=== PATIENT | female | born 1990 | race Caucasian/White ===

== ENCOUNTER → 2019-08-29 12:39 | Outpatient (CLI) | payer OTHER, SELFPAY ==
[2019-08-30 12:58] LABS: Strep Grp B PCR POS for Grp B Strep
== END ==
PROVIDERS: Visit Provider Specialist
DX: Z34.83 Encounter for supervision of other normal pregnancy, third trimester (principal)
CPT/HCPCS: 87653

== ENCOUNTER 2019-09-10 06:03 | Inpatient (IN) | payer OTHER, SELFPAY ==
--- NOTE | 2019-09-10 | PATH_ITS ---
[facility] Accession Number: [id number] . 01 Material submitted: . fallopian tube - BILATERAL FALLOPIAN TUBE SEGMENTS . 02 Diagnosis: Bilateral Fallopian Tube Segments, Bilateral Tubal Ligation: Two segments of fallopian tube. No evidence of neoplasm. [facility] 09/12/2019 1209 Local . 02 Electronically signed: . Joce Andrea MD, PhD, Pathologist NPI- [id number] . 01 Gross description: . Received one formalin-filled container, labeled with the patient's name and labeled bilateral fallopian tube segments. The specimen consists of two pink-shepherd to shepherd-bui, rough, cylindrical-shaped portions of tissue. The first measures 1.3 cm in length by 0.4 cm in diameter. The specimen is sectioned into three pieces and entirely submitted in cassette A1. The second piece measures 1.2 cm in length by 0.5 cm in diameter. The specimen is sectioned into three pieces and entirely submitted in cassette A2. ([id number]) /[facility] 09/11/2019 0228 Local . 02 Microscopic: . Complete cross-sections of fallopian tube are seen in each of the submitted tubal structures. . 02 Pathologist provided ICD-10: Z98.891, Z30.2 . 02 CPT . 501716 Performed at: 01 [facility] [address] [facility], [place], [place] [id number] MD Yosef May MD Phone: [phone] Performed at: 02 [facility] [address] [place], [place] [id number] MD Carmita King MD Phone: [phone]
--- NOTE | 2019-09-10 07:26 | P.HPOB_ITS ---
OB HPI Date/Time Date of admission: 09/10/19 Date Patient Seen: 09/10/19 Time Patient Seen: 07:27 History of Present Condition Chief complaint: [id number] : 3 Para: 2 Estimated Date of Delivery: 09/17/19 Estimated Gestational Age (weeks): 39 Narrative: Rafaela Sky is a 29 year old female admitted for repeat section with bilateral tubal ligation Indications Operative indications ( section): previous uterine surgery (2 prior C- sections) History of Present care: good care, initiated at week # (11) and number of visits (8) Dating criteria: LMP confirmed by 1st trimester US Ultrasounds: normal mid trimester US Obstetrical complications: gestational diabetes (Diet controlled) Medical complications: none Preadmission Labs Blood type: AB (+) positive -: Antibody screen: negative, GBS status: positive, HBsAG: negative, HIV: negative and RPR/VDLR: negative -: Chlamydia screen: not detected and Gonorrhea screen: not detected -: Rubella: immune HCAB: negative 1 hr GTT: 170 Prior (ies) History: 02/28/2011 39 week gestation for intolerance of labor male 11/24/2017 39 week gestation repeat male Evaluation Evaluation Baseline heart rate: 125 Variability: Moderate (11-25) monitor accelerations: Present monitor decelerations: Absent Category of Tracing: I PFSH Medical History (Updated 07/16/19 @ 09:49 by Megan Ward RN) Abnormal Pap smear of cervix (Acute ~2010) Anxiety (Acute) Depression (Acute) Hyperemesis gravidarum (Acute) Post depression (Acute) Ulcer (Acute ~2013) Surgical History (Updated 08/03/19 @ 13:02 by Tanesha Corona MD) History of primary section (Acute ~03/18/11) S/P repeat low transverse (Acute ~11/24/17) Family History (Updated 07/16/19 @ 09:43 by Megan Ward RN) Mother Hypertension Hyperlipidemia Hyperthyroidism Father No problems noted. Grandfather No problems noted. Grandmother No problems noted. Grandfather Spinal cord cancer Metastatic bone cancer Throat cancer Grandmother Depression Social History marital status: number of children: 2 household members: children (X 2) pets and animals: Yes (X 1) education level: high school occupational status: unemployed current occupational exposures/hazards: No special gianni needs: No Smoking Status: Never smoker Meds Home Medications and Allergies Home Medications Medication Instructions Recorded Confirmed Type ondansetron 8 mg disintegrating 8 mg PO Q8H PRN 07/16/19 09/05/19 History tablet prenat.vits,nakul,ceg-glax-grfzv 1 tab PO DAILY 07/16/19 09/05/19 History omeprazole 40 mg capsule,delayed 40 mg PO DAILY #30 cap 08/15/19 09/05/19 Rx release Allergies Allergy/AdvReac Type Severity Reaction Status Date / Time pepto bismal Allergy Severe Hives and Uncoded 09/05/19 11:23 Trouble Breathing tree nuts AdvReac Mild Swelling, Uncoded 09/05/19 11:23 hives Review of Systems Review of Systems Narrative: Patient denies any headaches, scotomata, epigastric pain. Good movement. No regular contractions. No rupture membranes. ROS: Yes All systems reviewed with the patient and are negative except as otherwise documented Exam Vital Signs (past 8 hours): Blood pressure 123/62, pulse of 87, temperature 97.5? Narrative Exam Narrative: HEENT exam within normal limits. Lungs are clear to auscultation percussion. Heart is regular rate and rhythm no S3-S4 or murmurs. Abdomen is gravid. Fetus is vertex. Extremities without edema and nontender Patient did received the Tdap in the 3rd trimester Assessment and Plan Assessment and Plan Assessment and Plan narrative: 39 week gestation for repeat section and desire for tubal ligation for permanent sterilization
--- NOTE | 2019-09-10 07:26 | PM.PREOP ---
Pre-operative Note Interval Note History & Physical reviewed/Exam performed by Physician: Yes Changes to H&P: No
[2019-09-10] MEDS: CEFAZOLIN 2 GM/100 ML FROZ.PIGGY IV (08:13)
--- NOTE | 2019-09-10 08:34 | SUR.OPER ---
Supine on Padded OR bed, head on pillow, safety belt at thigh, arms secured on padded arm boards at <90 degrees abduction. Bump under right buttock. Legs uncrossed with pillow under knees, gel pad to heels, tape over blanket to lower legs.
--- NOTE | 2019-09-10 08:39 | SUR.OPER ---
FHT's 140. TOB live girl @0815. Cord blood x2 andn placenta to OB with L&D Rn
[2019-09-10 09:20] VITALS: BP 108/57; PULSE 94; RESP 22; TEMP 37.4; O2SAT 94
[2019-09-10 09:25] VITALS: BP 108/46; PULSE 84; RESP 96; TEMP 37.4; O2SAT 96
[2019-09-10 09:30] VITALS: BP 103/58; PULSE 98; RESP 13; TEMP 37.1; O2SAT 95
[2019-09-10] MEDS: ONDANSETRON 4 MG/2 ML INJ IV (09:35)
[2019-09-10 09:40] VITALS: BP 100/72; PULSE 80; RESP 20; TEMP 37.1; O2SAT 97
--- NOTE | 2019-09-10 09:40 | P.OP_ITS ---
Operative Date/Time/Diagnoses Date of procedure: 09/10/19 Time of procedure: 09:40 Pre-op diagnosis: 39 week gestation with 2 prior sections and undesired fertility Post-op diagnosis: same Procedure & Clinicians Procedure: Repeat low-transverse section with bilateral tubal ligation Same procedure as scheduled: Yes Indications: 2 prior C-sections at 39 weeks with undesired fertility Surgeon: Tanesha Corona [employer] Recruiter: Latoya Rockwell Click Yes if Unassisted: No Anesthesia Type: Spinal Operative Notes Findings: Normal tubes, ovaries, and uterus. Viable female infant weighing 7 lb 1 oz 3205 g with Apgars of 8 and 9 Closure Type: primary Specimen(s): other (Bilateral tubal segments) Applied: catheter (Arias) Estimated Blood Loss (mL): 400 Blood products transfused: none Procedure in detail: The patient was brought to the operating room where she underwent an epidural for anesthesia. She was placed in a supine position with a left lateral tilt. A Arias catheter was placed. Pulsatile stockings were placed and functional throughout the case. 2 g of Ancef were given IV prior to the incision. Warming was in place. The patient was prepped and draped in usual sterile fashion. A low transverse incision was made with a scalpel and the incision was carried down to the fascial layer which was incised transversely with scissors. The midline attachments are superiorly and inferiorly. Some bleeding was controlled Bovie. The rectus muscles were in the midline and the peritoneal incision was made with no damage to internal structures. The perit oneum was incised and superiorly and inferiorly. Bladder blade was placed and a bladder flap was developed and the bladder held away from the lower uterine segment. An incision was made in the uterus with the scalpel and the incision was extended with stretching. The head was elevated out of the abdomen and with fundal pressure the baby was delivered. The infant was bulb suctioned for clear fluid and handed off to the warmer. Cord blood was collected. The placenta delivered spontaneously with traction. The uterus was cleaned with clean laps. The uterine incision was closed in 2 layers of 0 chromic suture the first a running locking layer the second an imbricating layer. The bladder peritoneum was repaired with 2-0 Polysorb suture. The gutters were cleaned of any remaining fluids and ovaries and tubes were observed to be normal. Michael was used to hold a segment of the left fallopian tube which was tied off x2 with 0 plain suture. The intervening section was removed and sent to pathology. The same procedure was performed on the right side. Adequate hemostasis was noted. The perineum was closed with 2-0 Polysorb suture. The fascia layer was closed with 0 Polysorb suture with 2 stitches. The incision was irrigated and adequate hemostasis noted. The incision was closed with interrupted 3-0 Polysorb sutures and then a subcuticular stitch of 4-0 Polysorb suture. Steri-Strips were placed. The uterus was massaged to remove any clots. The patient went to recovery room in good condition. Counts of instruments and sponges were correct. Complications: none Post-operative Condition: stable Disposition: other ( Center) Plan for aftercare: Routine post section
[2019-09-10 09:45] VITALS: BP 117/66; PULSE 90; RESP 15; O2SAT 94
[2019-09-10 10:21] LABS: Add Manual Diff / Slide Review NO; Basophils Absolute Auto 100 /uL (0-100); Basophils Percent Auto 0.7 % (0-2); Eosinophils Absolute Auto 100 /uL (0-450); Eosinophils Percent Auto 1.5 % (2-4); Hematocrit 33.2 % (36-46); Hemoglobin 11.2 g/dL (12.0-16.0); Lymphocytes Absolute Auto 1900 /uL (1100-4500); Lymphocytes Percent Auto 21.2 % (25-40); Mean Corpuscular HGB Conc 33.9 % (30-36); Mean Corpuscular Hemoglobin 29.1 PG (26-34); Mean Corpuscular Volume 85.9 fL (80-100); Monocytes Absolute Auto 700 /uL (0-900); Monocytes Percent Auto 7.7 % (3-14); Neutrophils Absolute Auto 6200 /uL (1500-7000); Neutrophils Percent Auto 68.9 % (50-75); Platelet Count 163 X10^3/uL (150-400); Red Blood Cell Count 3.87 X10^6/uL (4.0-5.2); Red Cell Distribution Width 14.1 % (11.6-14.8)
[2019-09-10 10:56] VITALS: BP 123/62
[2019-09-10] MEDS: LACTATED RINGERS 1,000 ML 100 ML IV ×2 (11:43→20:15)
[2019-09-10] MEDS: METOCLOPRAMIDE 10 MG/2 ML INJ IV (11:50)
[2019-09-10] MEDS: NALOXONE 0.4 MG/ML VIAL IV ×2 (13:45→14:00)
[2019-09-10] MEDS: KETOROLAC 30 MG/ML VIAL IV ×2 (16:24→21:23)
[2019-09-10] MEDS: LACTATED RINGERS 1,000 ML 1000 ML IV (16:25)
[2019-09-10] MEDS: SCOPOLAMINE 1 PATCH TOP (16:25)
[2019-09-11] MEDS: LACTATED RINGERS 1,000 ML 100 ML IV ×2 (00:31→08:28)
[2019-09-11 03:13] VITALS: BP 104/61; PULSE 77; RESP 16; TEMP 37.2
[2019-09-11] MEDS: KETOROLAC 30 MG/ML VIAL IV (03:15)
[2019-09-11 04:13] VITALS: BP 104/61; PULSE 77; RESP 16; TEMP 36.6
[2019-09-11 07:32] LABS: Hematocrit 27.2 % (36-46); Hemoglobin 9.3 g/dL (12.0-16.0)
[2019-09-11] MEDS: DOCUSATE 250 MG CAPSULE PO (08:41)
[2019-09-11] MEDS: LANOLIN OINT 7 GM 1 APPLIC TOP (09:10)
--- NOTE | 2019-09-11 09:36 | PM.OBPN.1 ---
Subjective - OB Subjective Patient comments: pain well controlled [place] baby status: doing well and nursing well [place] feeding status: exclusively breast feeding Date Patient Seen: 09/11/19 Time Patient Seen: 08:36 Interval history: Patient is post operative day 1. Repeat with tubal ligation. Patient had significant nausea which has since resolved. She had some borderline urinary output which is now improved. She is up without issues. Breast-feeding is going well. Exam Vital Signs (past 8 hours): Blood pressure 108/62, pulse 68, temperature 36.3? Oxygen Delivery Method Nasal Cannula Narrative Exam Narrative: Abdomen is soft, nontender. Uterus is firm, at U, nontender. Dressing is clean, dry, intact. Mild lochia. Extremities without edema and nontender. Objective Labs Result Diagrams: 09/11/19 06:50 Labs: Laboratory Results - last 24 hr 09/10/19 09/10/19 09/11/19 10:01 10:01 06:50 WBC 9.0 RBC 3.87 L Hgb 11.2 L 9.3 L Hct 33.2 L 27.2 L MCV 85.9 MCH 29.1 MCHC 33.9 RDW 14.1 Plt Count 163 Neut % (Auto) 68.9 Lymph % (Auto) 21.2 L [place] % (Auto) 7.7 Eos % (Auto) 1.5 L Baso % (Auto) 0.7 Neut # (Auto) 6200 Lymph # (Auto) 1900 [place] # (Auto) 700 Eos # (Auto) 100 Baso # (Auto) 100 Blood Type AB Positive Antibody Screen Negative Assessment & Plan Assessment and Plan (1) Delivery by section: Status: Acute Current Visit: Yes (2) Sterilization: Status: Acute Current Visit: Yes (3) Acute blood loss anemia: Status: Acute Current Visit: Yes Plan day: 1 plan OB: routine postop care Time Spent With Patient Time: Total time spent is greater than 50% in coordination of care (as documented) at patient's floor/unit and/or counseling patient: Time with patient: less than 15 minutes
[2019-09-11] MEDS: OXYCODONE/ACETAMINOPHEN 5/325 TABLET 2 TAB PO (12:14)
[2019-09-11 18:11] VITALS: TEMP 37.2
[2019-09-11] MEDS: IBUPROFEN 600 MG TABLET PO (18:11)
[2019-09-12] MEDS: OXYCODONE/ACETAMINOPHEN 5/325 TABLET 2 TAB PO ×2 (01:05→10:29)
[2019-09-12] MEDS: IBUPROFEN 600 MG TABLET PO (01:06)
--- NOTE | 2019-09-12 08:14 | P.DS_ITS ---
Discharge Providers Provider Date of admission: 09/10/19 06:03 Discharge Date: 09/12/19 Consults: 09/10/19 10:12 Consult to Showroom Sales Consultant Routine Comment: Discharge provider: Tanesha Corona MD Summary Hospital Course Date Patient Seen: 09/12/19 Time Patient Seen: 08:14 Procedures: Repeat low-transverse section with bilateral tubal ligation Hospital Course: Patient was admitted for repeat low-transverse section and tubal ligation. She had significant nausea initially post operatively. She now it is tolerating regular diet, passing gas, urinating and ambulating well and her pain is well controlled. She is breast-feeding without difficulty. No headaches, scotomata, epigastric pain. Peripartum Data Delivery Method: Section (Repeat low-transverse section with bilateral tubal ligation) Procedures: Repeat low-transverse section with bilateral tubal ligation complications: none 1: Gender: Female Disposition of : home Discharge Diagnosis (1) Delivery by section: Status: Acute (2) Sterilization: Status: Acute (3) Acute blood loss anemia: Status: Acute Status at Discharge Cognitive/behavioral status at discharge: oriented Functional status at discharge: independent ambulation Overall status at discharge: patient is progressing back to baseline Time Spent with Patient Time attestation: Total time spent providing and/or coordinating discharge servi anushka: Time spent: Less than 30 minutes Objective Labs Result Diagrams: 09/11/19 06:50 Exam Vital Signs (past 8 hours): Blood pressure 104/61, pulse of 86, temperature 36.2? Oxygen Delivery Method Nasal Cannula Narrative Exam Narrative: Abdomen is soft, nontender. Uterus is firm, at U, nontender. Dressing is clean, dry, intact. Mild lochia. Extremities without edema and nontender. Patient's blood type AB positive, she is rubella immune, and received Tdap in 3rd trimester Discharge Plan Discharge Plan Patient Disposition: Home Discharge orders & Medications Prescriptions: New oxycodone-acetaminophen 5-325 mg Tablet 2 tab PO Q4HR PRN (Reason: Pain, Severe (7-10)) Qty: 30 RF: 0 ibuprofen 600 mg Tablet 600 mg PO Q6HR PRN (Reason: Fever/Mild Pain (1-3)) Qty: 30 RF: 0 docusate sodium 250 mg Capsule 250 mg PO DAILY Qty: 20 RF: 0 ferrous gluconate 324 mg (38 mg iron) Tablet 324 mg PO DAILY Qty: 30 RF: 0 Continued prenat.vits,nakul,ekj-nqfm-pwccw Tablet 1 tab PO DAILY RF: 0 Discontinued ondansetron 8 mg tablet,disintegrating 8 mg PO Q8H PRN (Reason: (Drug) Ingestion) RF: 0 omeprazole 40 mg capsule,delayed release(DR/EC) 40 mg PO DAILY Qty: 30 RF: 1 Follow up/Referrals: Tanesha Croona MD [Physician] - 1 Week (Incision check) Diet/Activity/Treatments Diet: Regular Activity: Nothing in vagina and no lifting over 20 lb for 6 weeks Skin/Wound/Dressing Care Report to your healthcare provider any signs of infection, such as:: chills, fever, increased pain and unusual redness Dressing: Leave dressing in place until 1 week postop appointment
== END 2019-09-12 11:44 | disposition home or self-care (01) | DRG 784 ==
PROVIDERS: Admitting Provider Specialist; Referring Provider Specialist; Visit Provider Specialist
PROC: 10D00Z1 Extraction of Products of Conception, Low, Open Approach (ICD-10-PCS; CPT 59514; principal; 2019-09-10 07:45)
DX: O34.219 Maternal care for unspecified type scar from previous cesarean delivery (principal); D62 Acute posthemorrhagic anemia; O99.02 Anemia complicating childbirth; Z3A.39 39 weeks gestation of pregnancy; Z37.0 Single live birth; Z30.2 Encounter for sterilization; O24.420 Gestational diabetes mellitus in childbirth, diet controlled; O99.824 Streptococcus B carrier state complicating childbirth
CPT/HCPCS: 36415; 58611; 59050; 59514; 59515; 85014; 85018; 85025; 86850; 86900; 86901; J0690; J1885; J2274; J2310; J2405; J2590; J2765